=== PATIENT | female | born 1985 | race Caucasian/White ===

== ENCOUNTER 2016-03-28 04:41 | Emergency (ER) | payer SELFPAY ==
[2016-03-28 04:42] VITALS: BP 137/92; PULSE 68; RESP 20; TEMP 98.2; O2SAT 100
[2016-03-28] MEDS ORDERED: VENTAER INH (04:58)
[2016-03-28] MEDS ORDERED: FLUT1INH7 INH (04:58)
[2016-03-28] MEDS ORDERED: LORA-474 PO ×2 (04:58→06:24)
[2016-03-28] MEDS ORDERED: LEXA10TA PO (04:58)
[2016-03-28] MEDS ORDERED: SODIUM CHLOR 0.9% 1000 ML INJ 1,000 ML IV SCH (05:20)
[2016-03-28] MEDS ORDERED: SODIUM CHLORIDE 0.9% FLUSH 5 ML FLUSH IVF PRN (05:30)
[2016-03-28] MEDS ORDERED: PROMETHAZINE INJ 25 MG/ML VIAL IM ONE (05:30)
[2016-03-28] MEDS ORDERED: LIDOCAINE VISCOUS 2% SOLN 15 ML UDC PO ONE (05:30)
[2016-03-28] MEDS ORDERED: ALUMINUM/MAGNESIUM/SIMETH 30 ML CUP PO ONE (05:30)
[2016-03-28] MEDS ORDERED: HYDROmorphone HCL PF 1 MG/ML VIAL IV PUSH ONE ×2 (05:30→07:30)
[2016-03-28] MEDS ORDERED: LORazepam 2 MG/ML VIAL IV PUSH ONE (06:00)
[2016-03-28 06:06] LABS: AUTOMATED NEUTROPHIL # 9.5 TH/MM3 (1.8-7.7); BASOPHIL # 0.1 TH/MM3 (0-0.2); BASOPHIL % 0.6 % (0.0-2.0); EOSINOPHIL # 0.1 TH/MM3 (0-0.4); EOSINOPHIL % 0.8 % (0.0-4.0); HEMATOCRIT 41.9 % (35.0-46.0); HEMO FLAGS DIFF FINAL; LYMPHOCYTE # 2.4 TH/MM3 (1.0-4.8); MEAN CELL VOLUME 87.1 FL (80.0-100.0); MEAN CORPUSCULAR HEMOGLOBIN 30.7 PG (27.0-34.0); MEAN CORPUSCULAR HGB CONC 35.3 % (32.0-36.0); MONO % 4.2 % (0.0-8.0); NEUT % 75.4 % (16.0-70.0); PLATELET COUNT 291 TH/MM3 (150-450); RED BLOOD COUNT 4.81 MIL/MM3 (4.00-5.30); RED CELL DISTRIBUTION WIDTH 14.2 % (11.6-17.2); WHITE BLOOD COUNT 12.6 TH/MM3 (4.0-11.0)
--- NOTE | 2016-03-28 06:11 | PD ---
HPI Chief Complaint: GI Complaint Time Seen by Provider: 05:08 Travel History International Travel<30 days: No Contact w/Intl Traveler<30days: No Traveled to known affect area: No History of Present Illness HPI Patient is a 30 CCF with history of asthma and anxiety presenting to the ED with nausea and vomiting for 5 days duration. She came to the ED tonight because she noticed what appeared to be small amounts of blood in the vomit around 3 am. There was no bright red blood in vomitus and no hematochezia. Her symptoms began suddenly on Sunday with nausea vomiting diarrhea and malaise. Temp at home was recorded at 100F. She was seen at an urgent care clinic on Sunday where according to her roommate she was given 1 L of NS, Phenergan, and Zofran with very little symptom relief. She has been unable to take PO medications such as her Ativan and throws up any food or liquid consumed. She denies any sick contacts or recent new foods or exposures. She just started school at [employer] and had exposure to large groups of people. 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 [facility] Past Medical History Asthma: Yes Anxiety: Yes ?: Not LMP: 09/2015, PT SEEING OB FOR THIS Past Surgical History Other Surgery: Yes (RIGHT CARPAL TUNNEL ) Social History Alcohol Use: Yes Tobacco Use: No Substance Use: No Allergies-Medications (Allergen,Severity, Reaction): Coded Allergies: Avelox (Verified Allergy, Severe, Hives, 03/28/16) Reported Meds & Prescriptions Reported Meds & Active Scripts Active Phenergan Supp (Promethazine HCl) 25 Mg Supp 25 Mg RECTAL Q6H PRN Ativan (Lorazepam) 1 Mg Tab 1 Mg PO BID Reported Lexapro (Escitalopram Oxalate) 10 Mg Tab 10 Mg PO DAILY Ativan (Lorazepam) 1 Mg Tab 1 Mg PO BID PRN Ventolin Hfa 18 GM Inh (Albuterol Sulfate) 90 Mcg/Act Aer 2 Puff INH Q4-6H PRN Breo Ellipta Inh (Fluticasone/Vilanterol) 200-25 Mcg/Act Inh 1 Puff INH DAILY Use daily at the same time. Review of Systems Except as stated in HPI: all other systems reviewed are Neg General / Constitutional: Positive: Fever, Chills HENT: Positive: Headaches, Sore Throat, No: Congestion Cardiovascular: No: Chest Pain or Discomfort Respiratory: No: Cough Gastrointestinal: Positive: Nausea, Vomiting, Diarrhea, Abdominal Pain, Hematemesis, No: Hematochezia, Constipation, Changes in Bowel Habits Psychiatric: Positive: Anxiety, No: Depression Physical Exam Narrative GENERAL: Well developed well nourished CCF in moderate distress. Unable to lay still, writhing on bed SKIN: Warm and dry. HEAD: Atraumatic. Normocephalic. EYES: Pupils equal and round. No scleral icterus. No injection or drainage. ENT: No nasal bleeding or discharge. Mucous membranes pink and moist. NECK: Trachea midline. No JVD. CARDIOVASCULAR: Regular rate and rhythm. RESPIRATORY: No accessory muscle use. Clear to auscultation. Breath sounds equal bilaterally. GASTROINTESTINAL: Abdomen soft, diffusely tender, nondistended. Hepatic and splenic margins not palpable. MUSCULOSKELETAL: Extremities without clubbing, cyanosis, or edema. No obvious deformities. NEUROLOGICAL: Awake and alert. No obvious cranial nerve deficits. Motor grossly within normal limits. Five out of 5 muscle strength in the arms and legs. Normal speech. PSYCHIATRIC: Anxious, agitated, in moderate distress about condition Data Data Last Documented VS Vital Signs Date Time Temp Pulse Resp B/P Pulse Ox O2 Delivery O2 Flow Rate FiO2 03/28/16 09:01 79 16 122/88 99 03/28/16 07:00 Room Air 03/28/16 04:42 98.2 Orders Complete Blood Count With Diff (03/28/16 05:20) Comprehensive Metabolic Panel (03/28/16 05:20) Lipase (03/28/16 05:20) Lactic Acid (03/28/16 05:20) Urinalysis - C+S If Indicated (03/28/16 05:20) Iv Access Insert/Monitor (03/28/16 05:20) Ecg Monitoring (03/28/16 05:20) Oximetry (03/28/16 05:20) Sodium Chlor 0.9% 1000 Ml Inj (Ns 1000 M (03/28/16 05:20) Sodium Chloride 0.9% Flush (Ns Flush) (03/28/16 05:30) Ed Urine Pregnancytest Poc (03/28/16 05:20) Al-Mag Hy-Si 40-40-4 Mg/Ml Liq (Mag-Al P (03/28/16 05:30) Lidocaine 2% Viscous (Xylocaine 2% Visco (03/28/16 05:30) Promethazine Inj (Phenergan Inj) (03/28/16 05:30) Hydromorphone Pf Inj (Dilaudid Pf Inj) (03/28/16 05:30) Lorazepam Inj (Ativan Inj) (03/28/16 06:00) Sodium Chlor 0.9% 1000 Ml Inj (Ns 1000 M (03/28/16 07:30) Hydromorphone Pf Inj (Dilaudid Pf Inj) (03/28/16 07:30) Ondansetron Inj (Zofran Inj) (03/28/16 07:45) Ondansetron Inj (Zofran Inj) (03/28/16 07:38) Labs Laboratory Tests Test 03/28/16 03/28/16 03/28/16 05:45 05:50 07:45 White Blood Count 12.6 TH/MM3 Red Blood Count 4.81 MIL/MM3 Hemoglobin 14.8 GM/DL Hematocrit 41.9 % Mean Corpuscular Volume 87.1 FL Mean Corpuscular Hemoglobin 30.7 PG Mean Corpuscular Hemoglobin 35.3 % Concent Red Cell Distribution Width 14.2 % Platelet Count 291 TH/MM3 Mean Platelet Volume 6.8 FL Neutrophils (%) (Auto) 75.4 % Lymphocytes (%) (Auto) 19.0 % Monocytes (%) (Auto) 4.2 % Eosinophils (%) (Auto) 0.8 % Basophils (%) (Auto) 0.6 % Neutrophils # (Auto) 9.5 TH/MM3 Lymphocytes # (Auto) 2.4 TH/MM3 Monocytes # (Auto) 0.5 TH/MM3 Eosinophils # (Auto) 0.1 TH/MM3 Basophils # (Auto) 0.1 TH/MM3 CBC Comment DIFF FINAL Differential Comment Sodium Level 145 MEQ/L Potassium Level 3.4 MEQ/L Chloride Level 108 MEQ/L Carbon Dioxide Level 25.9 MEQ/L Anion Gap 11 MEQ/L Blood Urea Nitrogen 17 MG/DL Creatinine 1.12 MG/DL Estimat Glomerular Filtration 58 ML/MIN Rate Random Glucose 86 MG/DL Calcium Level 8.8 MG/DL Total Bilirubin 0.7 MG/DL Aspartate Amino Transf 40 U/L (AST/SGOT) Alanine Aminotransferase 26 U/L (ALT/SGPT) Alkaline Phosphatase 82 U/L Total Protein 7.6 GM/DL Albumin 4.3 GM/DL Lipase 205 U/L Lactic Acid Level 3.0 mmol/L Urine Color YELLOW Urine Turbidity CLEAR Urine pH 8.5 Urine Specific [place] 1.018 Urine Protein TRACE mg/dL Urine Glucose (UA) NEG mg/dL Urine Ketones NEG mg/dL Urine Occult Blood NEG Urine Nitrite NEG Urine Bilirubin NEG Urine Urobilinogen LESS THAN 2.0 MG/DL Urine Leukocyte Esterase NEG Urine RBC 1 /hpf Urine WBC 1 /hpf Urine Squamous Epithelial <1 /hpf Cells Microscopic Urinalysis Comment CULT NOT INDICATED MDM Medical Decision Making Medical Screen Exam Complete: Yes Emergency Medical Condition: Yes Differential Diagnosis Gastroenteritis, peptic ulcer, appendicitis, acute cholecystitis Narrative Course Patient is a 30 yo CCF with nausea and vomiting for 5 days with no symptom improvement after outpatient medical management. IVF started with IM phenergan and ativan CBC & BMP Diagram 03/28/16 05:45 LFTs normal Lipase normal U preg negative LA 3.0 UA negative No hemodynamic instability. The patient has been resting comfortably throughout her ER stay moving from supine to lateral recumbent on both sides at times with her legs extended at times flexed. Intraperitoneal acute pathology is considered unlikely. She does note running out of Ativan recently. 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 She had an excellent response to Ativan given here. She does have good outside follow-up. Judicious use of prescribed meds below discussed. Diet and lifestyle modifications discussed. Patient agreeable with plan. Diagnosis Primary Impression: Anxiety Additional Impression: Vomiting Qualified Code: R11.10 - Vomiting, intractability of vomiting not specified, presence of nausea not specified, unspecified vomiting type Referrals: Primary Care Physician 2 days Additional Instructions: You have a choice when it comes to health care, and we are glad that you chose [facility]. Hopefully, we have met your expectations on today's visit. You are welcome to return to [facility] at any time, as we are committed to meeting the health care needs of our community. Med/Other Pt SpecificInfo: Prescription(s) given Scripts Promethazine Supp (Phenergan Supp)25 Mg Supp25 Mg RECTAL Q6H PRN (NAUSEA OR VOMITING) #20 SUPP Ref 0 Prov:Segundo Awad MD 03/28/16 Lorazepam (Ativan)1 Mg Tab1 Mg PO BID #20 TAB Ref 0 Prov:Segundo Awad MD 03/28/16 Disposition: 01 DISCHARGE HOME Condition: Stable Segundo Awad MD Mar 28, 2016 06:11
[2016-03-28 06:25] LABS: ALT (GPT) 26 U/L (10-53); ANION GAP 11 MEQ/L (5-15); AST (GOT) 40 U/L (15-37); BICARBONATE 25.9 MEQ/L (21.0-32.0); BLOOD UREA NITROGEN 17 MG/DL (7-18); CHLORIDE 108 MEQ/L (98-107); GLOMERULAR FILTRATION RATE 58 ML/MIN (>89); POTASSIUM 3.4 MEQ/L (3.5-5.1); SODIUM (NA) 145 MEQ/L (136-145)
[2016-03-28 06:28] LABS: ALKALINE PHOSPHATASE 82 U/L (45-117); TOTAL BILIRUBIN ADULT 0.7 MG/DL (0.2-1.0)
[2016-03-28 07:00] VITALS: BP 146/94; PULSE 98; RESP 16; O2SAT 98
[2016-03-28] MEDS ORDERED: PROM1SUP7 RECTAL (07:07)
[2016-03-28] MEDS ORDERED: SODIUM CHLOR 0.9% 1000 ML INJ 1,000 ML IV ONE (07:30)
[2016-03-28] MEDS ORDERED: ONDANSETRON HCL 4 MG/2 ML VIAL ONE (07:38)
[2016-03-28] MEDS ORDERED: ONDANSETRON HCL 4 MG/2 ML VIAL IV PUSH ONE (07:45)
[2016-03-28 08:20] LABS: BLOOD, URINE NEG (NEG); GLUCOSE,URINE NEG (NEG); KETONE, URINE NEG (NEG); NITRITE,URINE NEG (NEG); PH, URINE 8.5 (5.0-8.5); SQUAMOUS EPITHELIAL CELL URINE <1 /hpf (0-5); URINE COLOR YELLOW (YELLW/STRAW)
[2016-03-28 08:23] LABS: COMMENT (UR) CULT NOT INDICATED; CULTURE IF INDICATED CULT NOT INDICATED
[2016-03-28 09:01] VITALS: BP 122/88
== END 2016-03-28 09:20 | disposition home or self-care (01) ==
LOC: NEPE 04:41
DX: F41.9 Anxiety disorder, unspecified (principal); R11.10 Vomiting, unspecified; J45.909 Unspecified asthma, uncomplicated
CPT/HCPCS: 80053; 81001; 83605; 83690; 84703; 85025; 96361; 96372; 96374; 96375; 99283; J1170; J2060; J2405; J2550; J7030

== ENCOUNTER 2016-03-30 12:53 | Emergency (ER) | payer SELFPAY ==
[~2016-03-30] VITALS: Ht 162.6 cm; Wt 55.0 kg
[~2016-03-30 12:53] MED LIST: FLUT1INH7 INH; LEXA10TA PO; LORA-474 PO; PROM1SUP7 RECTAL; VENTAER INH
[2016-03-30 12:55] VITALS: BP 136/81; PULSE 73; RESP 14; TEMP 97.6; O2SAT 97
[2016-03-30] MEDS ORDERED: chlordiazePOXIDE 25 MG CAP PO STA (14:03)
--- NOTE | 2016-03-30 14:07 | PD ---
HPI Chief Complaint: Alcohol/Drug Intoxication Time Seen by Provider: 13:54 Travel History International Travel<30 days: No Contact w/Intl Traveler<30days: No Traveled to known affect area: No History of Present Illness HPI The patient is a 30-year-old female who presents emergency department for alcohol and benzodiazepine withdrawal. The patient states she spent one year in the [place] and had 5) personal deaths. The patient was also placed on Xanax for anxiety and then was switched Ativan. The patient also states she's been drinking heavily over the last year approximate 6-7 shots of liquor daily. The patient now complains of withdrawal type symptoms including nausea, decreased appetite, lethargy, anxiety, and the shakes. The patient states she is returning home to [place] to undergo detox, but states she needs medications to help her get to [place]. The patient also states she was seen in emergency department several days ago for nausea and vomiting. The patient states she has intermittent abdominal cramping which is diffuse, intermittent, episodic, associated with her nausea. The patient does state her vomiting has improved since she was evaluated several days ago in the emergency department. [facility] Past Medical History Asthma: Yes Anxiety: Yes ?: Unknown LMP: september 2015 Past Surgical History Other Surgery: Yes (RIGHT CARPAL TUNNEL ) Social History Alcohol Use: Yes Tobacco Use: No Substance Use: Yes (benzo) Allergies-Medications (Allergen,Severity, Reaction): Coded Allergies: Avelox (Verified Allergy, Severe, Hives, 03/30/16) Reported Meds & Prescriptions Reported Meds & Active Scripts Active Phenergan Supp (Promethazine HCl) 25 Mg Supp 25 Mg RECTAL Q6H PRN Ativan (Lorazepam) 1 Mg Tab 1 Mg PO BID Reported Lexapro (Escitalopram Oxalate) 10 Mg Tab 20 Mg PO DAILY Ventolin Hfa 18 GM Inh (Albuterol Sulfate) 90 Mcg/Act Aer 2 Puff INH Q4-6H PRN Breo Ellipta Inh (Fluticasone/Vilanterol) 200-25 Mcg/Act Inh 1 Puff INH DAILY Use daily at the same time. Review of Systems Except as stated in HPI: all other systems reviewed are Neg General / Constitutional: No: Fever Cardiovascular: No: Chest Pain or Discomfort Respiratory: No: Shortness of Breath Gastrointestinal: Positive: Nausea, Abdominal Pain, No: Vomiting Genitourinary: No: Dysuria Musculoskeletal: Positive: Weakness Psychiatric: Positive: Depression Physical Exam Narrative GENERAL: Awake, alert, pleasant 30-year-old female who appears her stated age and is in no acute respiratory distress. SKIN: Warm and dry. HEAD: Atraumatic. Normocephalic. EYES: Pupils equal and round. No scleral icterus. No injection or drainage. ENT: No nasal bleeding or discharge. Mucous membranes pink and moist. NECK: Trachea midline. No JVD. CARDIOVASCULAR: Regular rate and rhythm. No murmur appreciated. RESPIRATORY: No accessory muscle use. Clear to auscultation. Breath sounds equal bilaterally. GASTROINTESTINAL: Abdomen soft, mild tenderness, but no rebound tenderness, guarding, or rigidity. MUSCULOSKELETAL: No obvious deformities. No clubbing. No cyanosis. No edema. NEUROLOGICAL: Awake and alert. No obvious cranial nerve deficits. Motor grossly within normal limits. Normal speech. Nonfocal. PSYCHIATRIC: Slightly anxious. Data Data Last Documented VS Vital Signs Date Time Temp Pulse Resp B/P Pulse Ox O2 Delivery O2 Flow Rate FiO2 03/30/16 12:55 97.6 73 14 136/81 97 Room Air Orders Complete Blood Count With Diff (03/30/16 14:03) Comprehensive Metabolic Panel (03/30/16 14:03) Alcohol (Ethanol) (03/30/16 14:03) Lorazepam Inj (Ativan Inj) (03/30/16 14:15) Chlordiazepoxide (Librium) (03/30/16 14:03) Sodium Chlor 0.9% 1000 Ml Inj (Ns 1000 M (03/30/16 14:15) Ondansetron Inj (Zofran Inj) (03/30/16 14:15) Lipase (03/30/16 14:07) Ed Urine Pregnancytest Poc (03/30/16 14:07) Labs Laboratory Tests Test 03/30/16 14:05 White Blood Count 9.5 TH/MM3 Red Blood Count 4.95 MIL/MM3 Hemoglobin 15.1 GM/DL Hematocrit 43.3 % Mean Corpuscular Volume 87.3 FL Mean Corpuscular Hemoglobin 30.5 PG Mean Corpuscular Hemoglobin 35.0 % Concent Red Cell Distribution Width 14.2 % Platelet Count 303 TH/MM3 Mean Platelet Volume 6.8 FL Neutrophils (%) (Auto) 56.8 % Lymphocytes (%) (Auto) 36.6 % Monocytes (%) (Auto) 4.1 % Eosinophils (%) (Auto) 1.8 % Basophils (%) (Auto) 0.7 % Neutrophils # (Auto) 5.4 TH/MM3 Lymphocytes # (Auto) 3.5 TH/MM3 Monocytes # (Auto) 0.4 TH/MM3 Eosinophils # (Auto) 0.2 TH/MM3 Basophils # (Auto) 0.1 TH/MM3 CBC Comment DIFF FINAL Differential Comment Sodium Level 140 MEQ/L Potassium Level 3.6 MEQ/L Chloride Level 105 MEQ/L Carbon Dioxide Level 25.3 MEQ/L Anion Gap 10 MEQ/L Blood Urea Nitrogen 17 MG/DL Creatinine 1.03 MG/DL Estimat Glomerular Filtration 63 ML/MIN Rate Random Glucose 80 MG/DL Calcium Level 9.4 MG/DL Total Bilirubin 0.9 MG/DL Aspartate Amino Transf 50 U/L (AST/SGOT) Alanine Aminotransferase 31 U/L (ALT/SGPT) Alkaline Phosphatase 100 U/L Total Protein 8.1 GM/DL Albumin 4.7 GM/DL Ethyl Alcohol Level 86 MG/DL [facility] Medical Decision Making Medical Screen Exam Complete: Yes Emergency Medical Condition: Yes Medical Record Reviewed: Yes Interpretation(s) Laboratory Tests Test 03/30/16 14:05 White Blood Count 9.5 TH/MM3 Red Blood Count 4.95 MIL/MM3 Hemoglobin 15.1 GM/DL Hematocrit 43.3 % Mean Corpuscular Volume 87.3 FL Mean Corpuscular Hemoglobin 30.5 PG Mean Corpuscular Hemoglobin 35.0 % Concent Red Cell Distribution Width 14.2 % Platelet Count 303 TH/MM3 Mean Platelet Volume 6.8 FL Neutrophils (%) (Auto) 56.8 % Lymphocytes (%) (Auto) 36.6 % Monocytes (%) (Auto) 4.1 % Eosinophils (%) (Auto) 1.8 % Basophils (%) (Auto) 0.7 % Neutrophils # (Auto) 5.4 TH/MM3 Lymphocytes # (Auto) 3.5 TH/MM3 Monocytes # (Auto) 0.4 TH/MM3 Eosinophils # (Auto) 0.2 TH/MM3 Basophils # (Auto) 0.1 TH/MM3 CBC Comment DIFF FINAL Differential Comment Sodium Level 140 MEQ/L Potassium Level 3.6 MEQ/L Chloride Level 105 MEQ/L Carbon Dioxide Level 25.3 MEQ/L Anion Gap 10 MEQ/L Blood Urea Nitrogen 17 MG/DL Creatinine 1.03 MG/DL Estimat Glomerular Filtration 63 ML/MIN Rate Random Glucose 80 MG/DL Calcium Level 9.4 MG/DL Total Bilirubin 0.9 MG/DL Aspartate Amino Transf 50 U/L (AST/SGOT) Alanine Aminotransferase 31 U/L (ALT/SGPT) Alkaline Phosphatase 100 U/L Total Protein 8.1 GM/DL Albumin 4.7 GM/DL Ethyl Alcohol Level 86 MG/DL Differential Diagnosis Differential diagnosis includes anxiety, posttraumatic stress disorder, adjustment reaction, benzodiazepine withdrawal, alcohol withdrawal, dehydration , , pancreatitis, gastritis, peptic ulcer disease. Narrative Course IV was established, labs are drawn and sent, and the patient was placed on cardiac telemetry monitoring and continuous pulse oximetry monitoring. The patient is a ministered Ativan 0.5 mg intravenously and Librium 25 mg orally. I review the EMR, the patient had a negative bedside test performed on March 28, 2016. Electrolytes were sent to lab. Alcohol level was elevated at 86, electrolytes unremarkable. AST was elevated at 50. Patient is stable for outpatient follow-up, we'll be discharged on Librium. The patient is advised to follow [facility] or rehabilitation in [place]. Diagnosis Primary Impression: Benzodiazepine misuse Patient Instructions: General Instructions Additional Instructions: Librium as directed. Follow-up with her [facility] outpatient rehabilitation. Follow-up with a primary physician. Med/Other Pt SpecificInfo: Prescription(s) given Scripts Chlordiazepoxide 25 Mg Cap25 Mg PO QID PRN (Anxiety) #20 CAP Ref 0 Prov:Nicolas Villatoro MD 03/30/16 Disposition: 01 DISCHARGE HOME Condition: Stable Nicolas Villatoro MD Mar 30, 2016 14:07
[2016-03-30] MEDS ORDERED: SODIUM CHLOR 0.9% 1000 ML INJ 1,000 ML IV ONE (14:15)
[2016-03-30] MEDS ORDERED: LORazepam 2 MG/ML VIAL IV PUSH ONE (14:15)
[2016-03-30] MEDS ORDERED: ONDANSETRON HCL 4 MG/2 ML VIAL IV PUSH ONE (14:15)
[2016-03-30 14:22] LABS: AUTOMATED NEUTROPHIL # 5.4 TH/MM3 (1.8-7.7); BASOPHIL # 0.1 TH/MM3 (0-0.2); BASOPHIL % 0.7 % (0.0-2.0); EOSINOPHIL # 0.2 TH/MM3 (0-0.4); EOSINOPHIL % 1.8 % (0.0-4.0); HEMATOCRIT 43.3 % (35.0-46.0); HEMO FLAGS DIFF FINAL; LYMPH % 36.6 % (9.0-44.0); LYMPHOCYTE # 3.5 TH/MM3 (1.0-4.8); MEAN CELL VOLUME 87.3 FL (80.0-100.0); MEAN CORPUSCULAR HEMOGLOBIN 30.5 PG (27.0-34.0); MONO % 4.1 % (0.0-8.0); NEUT % 56.8 % (16.0-70.0); PLATELET COUNT 303 TH/MM3 (150-450); RED BLOOD COUNT 4.95 MIL/MM3 (4.00-5.30); RED CELL DISTRIBUTION WIDTH 14.2 % (11.6-17.2); WHITE BLOOD COUNT 9.5 TH/MM3 (4.0-11.0)
[2016-03-30 14:44] LABS: ALKALINE PHOSPHATASE 100 U/L (45-117); TOTAL BILIRUBIN ADULT 0.9 MG/DL (0.2-1.0)
[2016-03-30 14:45] LABS: ALT (GPT) 31 U/L (10-53); ANION GAP 10 MEQ/L (5-15); AST (GOT) 50 U/L (15-37); BICARBONATE 25.3 MEQ/L (21.0-32.0); BLOOD UREA NITROGEN 17 MG/DL (7-18); CHLORIDE 105 MEQ/L (98-107); GLOMERULAR FILTRATION RATE 63 ML/MIN (>89); POTASSIUM 3.6 MEQ/L (3.5-5.1); SODIUM (NA) 140 MEQ/L (136-145)
[2016-03-30] MEDS ORDERED: CHLO25CA2 PO (15:06)
[2016-03-30 16:24] VITALS: BP 135/67; TEMP 98.4
== END 2016-03-30 16:15 | disposition home or self-care (01) ==
LOC: NEPE 12:53
DX: F13.90 Sedative, hypnotic, or anxiolytic use, unspecified, uncomplicated (principal); R53.83 Other fatigue; F41.9 Anxiety disorder, unspecified; R10.84 Generalized abdominal pain; Z87.09 Personal history of other diseases of the respiratory system
CPT/HCPCS: 80053; 80320; 83690; 84703; 85025; 96361; 96374; 96375; 99283; J2060; J2405; J7030

== ENCOUNTER 2017-06-19 05:24 | Emergency (ER) | payer BC ==
[~2017-06-19] VITALS: Ht 167.6 cm; Wt 61.4 kg
[~2017-06-19 05:24] MED LIST changes: +CHLO25CA2 PO
[2017-06-19 05:28] VITALS: BP 161/101; PULSE 100; RESP 16; TEMP 97.8; O2SAT 99
[2017-06-19] MEDS ORDERED: ADVA500A INH (05:38)
[2017-06-19] MEDS ORDERED: ADDE20 PO (05:38)
--- NOTE | 2017-06-19 06:10 | PD ---
HPI Chief Complaint: Eye Problems/Injury Time Seen by Provider: 06:05 Travel History International Travel<30 days: No Contact w/Intl Traveler<30days: No Traveled to known affect area: No History of Present Illness HPI 31-year-old white female presents emergency department with complaints of bilateral eye redness. She states that this started 2 days ago. It was in her left eye initially and now is gone into her right eye. She was seen at an urgent care and started on Polytrim ophthalmic drops. She states that it seemed to help initially but now is gotten worse. She states that her eyes feel dry and irritated although she has a watery discharge. Some blurred vision. No diplopia. No photophobia. No pruritus. No trauma. No contacts. No recent illness otherwise. She denies any recent colds. No fever chills, earache, sore throat, runny nose, cough or congestion. History Past Medical Histgory Narrative Medical Asthma Tetanus Vaccination: < 5 Years ?: Not LMP: currently Social History Alcohol Use: Yes Tobacco Use: No Allergies-Medications (Allergen,Severity, Reaction): Coded Allergies: moxifloxacin (Unverified Allergy, Severe, Hives, 06/19/17) Reported Meds & Prescriptions Reported Meds & Active Scripts Active Naphcon-A Opth Drops (Naphazoline-Pheniramine Opth Drops) 0.025-0.3 % Soln 1 Drop EACH EYE QID Gentamicin Opth Drops 0.3% Soln 1 Drop EACH EYE Q4HR Reported Advair Diskus Inh (Fluticasone-Salmeterol Inh) 500-50 Mcg/Blist Aer 1 Puff INH BID Rinse mouth after use. Adderall (Amphetamine-Dextroamphetamine) 20 Mg Tab 20 Mg PO BID Avoid late evening doses. Space doses at least 4 to 6 hours if more than once/day dosing. Ventolin Hfa 18 GM Inh (Albuterol Sulfate) 90 Mcg/Act Aer 2 Puff INH Q4-6H PRN Review of Systems General / Constitutional: No: Fever, Chills Eyes: Positive: Blurred Vision, Drainage, Redness, Pain (Discomfort around her eyes), Tearing, Visual changes, No: Diploplia, Photophobia, Foreign Body Sensation HENT: No: Headaches, Neck Pain Respiratory: No: Cough, Shortness of Breath Physical Exam Narrative GENERAL: Well-developed, well-nourished in no acute distress. Nontoxic appearing. Visual acuity in the right eye is 20/25, left eye 20/25. HEAD: Normocephalic, atraumatic. EYES: Pupils equal round and reactive. Extraocular motions intact. No scleral icterus. Bilateral injection with clear watery drainage from both eyes. The left is greater than the right. Alcaine is instilled in both eyes. Lids are flipped and no foreign body seen. Fluorescein stain is negative for corneal abrasion. ENT: TMs clear without erythema. The external auditory canals clear. Nose: clear . Posterior pharynx is pink and moist. No tonsillar edema or exudate. Uvula midline. Airway patent. NECK: Trachea midline.Supple, nontender, moves head freely. No central bony tenderness or spasm. CARDIOVASCULAR: Regular rate and rhythm without murmurs, gallops, or rubs. RESPIRATORY: Clear to auscultation. Breath sounds equal bilaterally. No wheezes , rales, or rhonchi. GASTROINTESTINAL: Abdomen soft, non-tender, nondistended. No hepato-splenomegaly , or palpable masses. No guarding. EXTREMITIES: No clubbing, cyanosis, or edema. No joint tenderness, effusion, or edema noted. BACK: Nontender without deformity or crepitance. No flank tenderness. Data Data Last Documented VS Vital Signs Date Time Temp Pulse Resp B/P (MAP) Pulse Ox O2 Delivery O2 Flow Rate FiO2 06/19/17 05:28 97.8 100 16 161/101 (121) 99 MDM Medical Screen Exam Complete: Yes Emergency Medical Condition: No Differential Diagnosis MDM: High Differential diagnoses: Acute conjunctivitis (bacterial, viral, allergic, traumatic), glaucoma, iritis, traumatic globe injury, foreign body, corneal abrasion, corneal ulcer Narrative Course A medical screening exam was performed: At the time of evaluation the presenting medical condition was determined not to be of an emergent nature. The patient was given the option of receiving additional care, but declined. Patient was given options for additional community resources from which to obtain care. The Patient Has Been advised to seek medical attention for their presenting complaint. The patient has been advised to return to the ER at any time if an emergent condition develops. The patient is opted to stay. The patient will be treated for to see if her symptoms improved spontaneously or improve using Naphcon-A drops. Patient has been advised to discontinue her Polytrim ophthalmic drops. We will give her Dr. Zuleta to follow-up with. She will also be given a note for work. Primary Impression: Conjunctivitis Qualified Codes: H10.9 - Unspecified conjunctivitis Referrals: Lynne Zuleta MD 2 days Departure Forms: Tests/Procedures, Work Release Special Instructions: No work 2-3 days. Additional Instructions: Rest. Wash eyelashes with baby shampoo 3 times daily. Warm compresses. Naphcon ophthalmic drops. Followup with an eye doctor in 2 days. Stop your current eyedrops. May start gentamicin in 48 hours if symptoms do not improve or if worsening develops. Follow-up with a medical doctor one week. Return to the ER if any problems. Med/Other Pt SpecificInfo: Prescription(s) given Scripts Naphazoline-Pheniramine Opth Drops (Naphcon-A Opth Drops) 0.025-0.3 % Soln 1 DROP EACH EYE QID for Decrease eye itching/redness, #1 BOTTLE 0 Refills Prov: Cori Goetz MD 06/19/17 Gentamicin Opth Drops (Gentamicin Opth Drops) 0.3% Soln 1 DROP EACH EYE Q4HR for Infection, #1 BOTTLE 0 Refills Prov: Cori Goetz MD 06/19/17 Disposition: 01 DISCHARGE HOME Condition: Stable Abimael Contreras Jun 19, 2017 06:10
[2017-06-19] MEDS ORDERED: GENT0.3S2 EACH EYE (06:16)
[2017-06-19] MEDS ORDERED: NAPHSOL EACH EYE (06:16)
== END 2017-06-19 06:23 | disposition home or self-care (01) ==
LOC: NEPD 05:24
DX: H10.9 Unspecified conjunctivitis (principal); J45.909 Unspecified asthma, uncomplicated
CPT/HCPCS: 99281; 99283